=== PATIENT | female | born 1940 | race Caucasian/White ===

== ENCOUNTER 2018-03-25 03:46 | Emergency (ER) | payer OTHER ==
[~2018-03-25] VITALS: Ht 149.9 cm; Wt 64.4 kg
[2018-03-25 03:51] VITALS: BP_SYST 194
[2018-03-25] MEDS ORDERED: MULT-1117 PO (04:03)
[2018-03-25] MEDS ORDERED: ROSU20TA PO (04:03)
[2018-03-25] MEDS ORDERED: [UNRECOGNIZED DRUG - CODE] PO (04:03)
[2018-03-25] MEDS ORDERED: OMEG-158 PO (04:03)
[2018-03-25] MEDS ORDERED: GLUC-160 PO (04:03)
[2018-03-25] MEDS ORDERED: MEMA5TAB15 PO (04:03)
[2018-03-25] MEDS ORDERED: ALEN10TA6 PO (04:03)
[2018-03-25] MEDS ORDERED: NACL 0.9% 1,000 ML IV ONE (04:07)
[2018-03-25 04:36] LABS: BASOPHILS # (AUTO) 0.1 K/uL (0.0-0.2); BASOPHILS % (AUTO) 0.9 % (0.0-2.0); CALCIUM 10.1 mg/dL (8.4-11.0); CHLORIDE 102 mmol/L (98-107); CREATININE 0.99 mg/dL (0.55-1.30); EOSINOPHILS # (AUTO) 0.1 K/uL (0.0-0.4); EOSINOPHILS % (AUTO) 1.5 % (0.0-4.0); GLUCOSE 112 mg/dL (70-99); HEMATOCRIT 41.7 % (36-48); HEMOGLOBIN 13.6 g/dL (12.0-16.0); LYMPHOCYTES # (AUTO) 1.1 K/uL (1.0-5.5); LYMPHOCYTES % (AUTO) 13.3 % (20.5-51.5); MEAN CORPUSCULAR HEMOGLOBIN 30 pg (27-31); MEAN CORPUSCULAR HGB CONC 33 % (32-36); MEAN CORPUSCULAR VOLUME 93 fL (79.0-98.0); MONOCYTES # (AUTO) 0.6 K/uL (0.0-1.0); MONOCYTES % (AUTO) 7.8 % (1.7-9.3); NEUTROPHILS # (AUTO) 6.4 K/uL (1.8-7.7); NEUTROPHILS % (AUTO) 76.5 % (40.0-70.0); PLATELET COUNT (AUTO) 275 K/uL (130-430); POTASSIUM 3.8 mmol/L (3.5-5.1); RED BLOOD CELL COUNT(AUTO) 4.48 MIL/uL (4.2-6.2); RED CELL DISTRIBUTION WIDTH 12.7 % (9.0-15.0); SODIUM SERUM 133 mmol/L (136-145); UREA NITROGEN, BLOOD 17 mg/dL (8-21); WHITE BLOOD COUNT (AUTO) 8.3 K/uL (4.8-10.8)
[2018-03-25 04:40] LABS: PROTHROMBIN TIME 9.8 SECS (9.5-12.5)
[2018-03-25 04:41] LABS: ALANINE AMINOTRANSFERASE 35 U/L (12-78); ALBUMIN 3.7 g/dL (3.4-4.8); ASPARTATE AMINOTRANSFERASE 35 U/L (10-37); LIPASE 159 U/L (73-393); TOTAL BILIRUBIN 0.5 mg/dL (0.0-1.0)
[2018-03-25 04:42] LABS: ANION GAP < 3 (5-15)
[2018-03-25 04:42] LABS: BILIRUBIN,URINE 3+ (NEGATIVE); BLOOD, URINE 3+ (NEGATIVE); COLOR,URINE YELLOW (YELLOW); GLUCOSE,URINE NEGATIVE (NEGATIVE); KETONES,URINE NEGATIVE (NEGATIVE); LEUKOCYTE ESTERASE ,URINE 1+ (NEGATIVE); NITRITE, URINE NEGATIVE (NEGATIVE); PROTEIN URINE NEGATIVE (NEGATIVE); UROBILINOGEN,URINE 0.2 (0.2-1.0)
[2018-03-25] MEDS ORDERED: cefTRIAXone 1 GM IVPB PREMIX 50 ML IV ONE (04:45)
[2018-03-25 05:15] LABS: BACTERIA,URINE MODERATE /HPF (None Seen); RBC,URINE 50-80 /HPF (0-3)
[2018-03-25 05:16] LABS: CLARITY/URINE SLIGHTLY CLOUDY (CLEAR)
[2018-03-25 06:28] VITALS: BP_SYST 138
== END 2018-03-25 06:28 | disposition home or self-care (01) ==
LOC: SED 03:46
DX: N39.0 Urinary tract infection, site not specified (principal); Z91.041 Radiographic dye allergy status; Z79.899 Other long term (current) drug therapy; Z90.49 Acquired absence of other specified parts of digestive tract
CPT/HCPCS: 36415; 74021; 80053; 81000; 83690; 85025; 85610; 87086; 96365; 99284; J0696; J7030

== ENCOUNTER 2018-08-30 18:52 | Emergency (ER) | payer OTHER ==
[~2018-08-30] VITALS: Ht 152.4 cm; Wt 63.5 kg
[~2018-08-30 18:52] MED LIST: ALEN10TA6 PO; GLUC-160 PO; MEMA5TAB15 PO; MULT-1117 PO; OMEG-158 PO; ROSU20TA PO; [UNRECOGNIZED DRUG - CODE] PO
--- NOTE | 2018-08-30 18:57 | NUR ---
Patient to ER bed 08 to gown for evaluation. Side rails up.
[2018-08-30 19:05] VITALS: BP_SYST 160
--- NOTE | 2018-08-30 19:43 | NUR ---
Pt complains of abdominal pain that radiates to left that started this morning. Pt states she was feeling nauseous but denies vomiting. No fever noted. No other injuries/complaints per patient or noted.
--- NOTE | 2018-08-30 19:48 | NUR ---
ER Dr. Ashley at bedside examining patient.
[2018-08-30] MEDS ORDERED: NACL 0.9% 1,000 ML IV ONE (20:24)
[2018-08-30] MEDS ORDERED: KETOROLAC TROMETHAMINE 15 MG VIAL IVP ONE (20:30)
[2018-08-30] MEDS ORDERED: MORPHINE 2 MG/ML INJ. SYRINGE IVP ONE (20:30)
[2018-08-30 20:47] LABS: BASOPHILS % (AUTO) 0.4 % (0.0-2.0); EOSINOPHILS % (AUTO) 0.5 % (0.0-4.0); HEMATOCRIT 40.6 % (36-48); HEMOGLOBIN 13.6 g/dL (12.0-16.0); LYMPHOCYTES # (AUTO) 1.2 K/uL (1.0-5.5); LYMPHOCYTES % (AUTO) 14.5 % (20.5-51.5); MEAN CORPUSCULAR HEMOGLOBIN 30 pg (27-31); MEAN CORPUSCULAR HGB CONC 33 % (32-36); MEAN CORPUSCULAR VOLUME 91 fL (79.0-98.0); MONOCYTES # (AUTO) 0.9 K/uL (0.0-1.0); MONOCYTES % (AUTO) 10.4 % (1.7-9.3); NEUTROPHILS # (AUTO) 6.4 K/uL (1.8-7.7); NEUTROPHILS % (AUTO) 74.2 % (40.0-70.0); PLATELET COUNT (AUTO) 224 K/uL (130-430); RED BLOOD CELL COUNT(AUTO) 4.47 MIL/uL (4.2-6.2); RED CELL DISTRIBUTION WIDTH 13.8 % (9.0-15.0); WHITE BLOOD COUNT (AUTO) 8.6 K/uL (4.8-10.8)
--- NOTE | 2018-08-30 20:48 | NUR ---
ultrasound at bedside, pt tolerated well.
[2018-08-30 22:17] LABS: ANION GAP 8 (5-15); CALCIUM 9.3 mg/dL (8.4-11.0); CHLORIDE 104 mmol/L (98-107); CREATININE 1.16 mg/dL (0.55-1.30); GLUCOSE 92 mg/dL (70-99); POTASSIUM 4.4 mmol/L (3.5-5.1); SODIUM SERUM 136 mmol/L (136-145); UREA NITROGEN, BLOOD 18 mg/dL (8-21)
[2018-08-30 22:21] LABS: ALANINE AMINOTRANSFERASE 29 U/L (12-78); ALBUMIN 3.4 g/dL (3.4-4.8); AMYLASE 62 U/L (0-100); ASPARTATE AMINOTRANSFERASE 29 U/L (10-37); LIPASE 93 U/L (73-393); TOTAL BILIRUBIN 0.4 mg/dL (0.0-1.0)
--- NOTE | 2018-08-30 22:30 | NUR ---
Patient went to radiology in stable condition.
[2018-08-30 22:37] LABS: PROTHROMBIN TIME 10.5 SECS (9.5-12.5)
--- NOTE | 2018-08-30 22:43 | NUR ---
patient returned from radiology in stable condition.
--- NOTE | 2018-08-30 22:47 | NUR ---
Assisted patient to restroom. Pt ambulate with steady gait.
[2018-08-30 23:00] LABS: BILIRUBIN,URINE NEGATIVE (NEGATIVE); BLOOD, URINE 2+ (NEGATIVE); CLARITY/URINE CLEAR (CLEAR); COLOR,URINE YELLOW (YELLOW); GLUCOSE,URINE NEGATIVE (NEGATIVE); KETONES,URINE 1+ (NEGATIVE); LEUKOCYTE ESTERASE ,URINE 1+ (NEGATIVE); NITRITE, URINE NEGATIVE (NEGATIVE); PH,URINE 5.5 (5.0-8.0); PROTEIN URINE NEGATIVE (NEGATIVE); UROBILINOGEN,URINE 0.2 (0.2-1.0)
[2018-08-30 23:12] LABS: RBC,URINE 20-50 /HPF (0-3)
[2018-08-30 23:14] LABS: BACTERIA,URINE FEW /HPF (None Seen)
[2018-08-31] MEDS ORDERED: cefTRIAXone 1 GM VIAL IM ONE (00:45)
[2018-08-31] MEDS ORDERED: LIDOCAINE 1% 10 MG/ML, 20 ML MDV INJ ONE (00:45)
[2018-08-31 00:53] VITALS: BP_SYST 160
--- NOTE | 2018-08-31 00:53 | NUR ---
Note undone in EDM - 08/31/18 at 0216 by [email or web address] Patient given written and verbal discharge instructions and verbalizes understanding. ER MD discussed with patient the results and treatment provided. Patient in stable condition. ID arm band removed. IV catheter removed intact and dressing applied, no active bleeding. Rx of [place] and Levaquin given. Patient educated on pain management and to follow up with PMD. Pain Scale 0. Opportunity for questions provided and answered. Medication side effect fact sheet provided.
--- NOTE | 2018-08-31 00:53 | NUR ---
Patient given written and verbal discharge instructions and verbalizes understanding. ER MD Dr. Ashley discussed with patient the results and treatment provided. Patient in stable condition. ID arm band removed. IV catheter removed intact and dressing applied, no active bleeding. Rx of norco and levaquin given. Patient educated on pain management and to follow up with PMD. Pain Scale 0/10. Opportunity for questions provided and answered. Medication side effect fact sheet provided.
== END 2018-08-31 00:53 | disposition home or self-care (01) ==
LOC: SED 18:52
DX: N12 Tubulo-interstitial nephritis, not specified as acute or chronic (principal); N20.0 Calculus of kidney; N83.202 Unspecified ovarian cyst, left side; N83.201 Unspecified ovarian cyst, right side; N39.0 Urinary tract infection, site not specified; I10 Essential (primary) hypertension; Z90.49 Acquired absence of other specified parts of digestive tract; Z79.899 Other long term (current) drug therapy; Z91.041 Radiographic dye allergy status
CPT/HCPCS: 36415; 74176; 76700; 80053; 81000; 82150; 83690; 85025; 85610; 87086; 96374; 99284; J1885; J7030